=== PATIENT | male | born 1945 | race Caucasian/White ===

== ENCOUNTER 2023-11-09 05:58 | Day surgery (SDC) | payer MEDICARE ==
[2023-11-06 09:12] VITALS: BMI 26.3
[2023-11-09] MEDS ORDERED: LIDOCAINE 1% (10MG/ML) FOR IV START INTRADERMA PRN (06:31)
[2023-11-09] MEDS ORDERED: droPERidol 5 MG/2 ML VIAL IVP ONE (06:31)
[2023-11-09] MEDS ORDERED: HYDROmorphone 0.5 MG/0.5 ML SYRINGE IVP PRN (07:00)
[2023-11-09 07:12] VITALS: TEMP 97.6
[2023-11-09] MEDS: TAMSULOSIN 0.4 MG CAP.ER.24H PO ONE (07:20)
[2023-11-09] MEDS: ACETAMINOPHEN TAB 500 MG TAB PO PRN (07:20)
[2023-11-09] MEDS: HEPARIN SODIUM,PORCINE 5,000 UNIT/ML 1 ML VIAL SQ PRN (07:21)
[2023-11-09] MEDS: DEXAMETHASONE SOD PHOSPHATE 4 MG/ML 1 ML VIAL IV ONE (07:21)
[2023-11-09] MEDS: ONDANSETRON 4 MG/2 ML VIAL IVP ONE (07:22)
[2023-11-09] MEDS ORDERED: PROPOFOL 10 MG/ML 20 ML VIAL IV ONE (07:25)
[2023-11-09] MEDS ORDERED: KETOROLAC 15 MG/ML 1 ML VIAL ONE (07:25)
[2023-11-09] MEDS ORDERED: ROCURONIUM 10 MG/ML (5 ML VIAL) IV ONE (07:25)
[2023-11-09] MEDS ORDERED: GLYCOPYRROLATE 0.2 MG/ML 2 ML VIAL ONE (07:25)
[2023-11-09] MEDS ORDERED: LIDOCAINE 1% INJ 10MG/ML (20 ML MDV) ONE (07:25)
[2023-11-09] MEDS ORDERED: KETAMINE HCL IN 0.9 % NACL 50 MG/5 ML SYRINGE ONE (07:25)
[2023-11-09] MEDS ORDERED: NEOSTIGMINE 1 MG/ML 10 ML VIAL ONE (07:25)
[2023-11-09] MEDS ORDERED: fentaNYL (PF) 50 MCG/ML 2 ML AMP ONE (07:25)
[2023-11-09] MEDS ORDERED: MIDAZOLAM 2 MG/2 ML VIAL ONE (07:25)
[2023-11-09] MEDS: LACTATED RINGERS 1,000 ML IV SCH (07:29)
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
[2023-11-09] MEDS: BUPIVACAINE (PF) 0.25% 30 ML VIAL SQ ONE (08:03)
--- NOTE | 2023-11-09 09:51 | P.OP ---
Date of Procedure: 11/09/23 Procedure(s) Performed: PREOPERATIVE DIAGNOSIS: Left inguinal hernia POSTOPERATIVE DIAGNOSIS: Moderate to large sized indirect left inguinal hernia incarcerated containing sigmoid colon, ischemic epiploic appendage PROCEDURE: Laparoscopic da Lionel assisted repair left inguinal hernia with mesh, excision mesenteric lesion SURGEON: Dr. Mcgraw ANESTHESIA: General OPERATIVE PROCEDURE DETAILS: Patient was placed in the operating table in the supine position. The patient was placed under general anesthesia. The abdomen was prepped and draped in usual sterile fashion. A small curvilinear supraumbilical incision was made. The fascia was retracted anteriorly with [place] forceps. The Veress needle was inserted. The saline drop test was normal. Insufflation took place to 15 mmHg. An 8 mm trocar was placed into the peritoneal cavity. 2 additional 8 mm trochars were placed in the right upper quadrant and left upper quadrant under visualization. The robotic arms were then brought in and docked into place. The fenestrated bipolar was used in the left arm and the laparoscopic connor was utilized in the right arm. A 30 8 mm scope was used in the up position. The peritoneal cavity was inspected. The patient had a large hernia on the left-hand side. The right-hand side was free of abnormalities. The sigmoid colon was able to be reduced from the hernia sac. This was a indirect hernia. I would estimate at least 10 inches of the sigmoid colon was present within the hernia. The patient had a portion of pericolonic epiploic appendage that was ischemic. When we first placed our trocars into the abdomen there was a small amount of serosanguineous fluid present. I was unsure where this fluid was emanating from but it may have been related to the ischemic fat. This was later excised. We also excised a portion of fat that was present adherent to the undersurface of the inferior epigastric vasculature. Both portions of fat were removed using an Endo Catch bag at the completion of the procedure and sent to pathology. The peritoneum was incised in a horizontal fashion cephalad to the internal inguinal ring. Following that careful dissection of the preperitoneal space took place. This took place using both electrocautery, sharp dissection but primarily blunt dissection. Visualization of the pubic tubercle and Dani's ligament took place medially. Full dissection took place laterally as well. The hernia sac was fully dissected. Once we had adequate space the [id number] Progrip mesh was advanced into the preperitoneal space and flattened out appropriately to cover all potential hernia sites. The mesh was sutured to Dani's ligament in the midline using a running absorbable 3 OV lock suture. The peritoneal defect was then closed using a absorbable 2-0 VLok suture. The large hernia sac was incorporated into the peritoneal closure to help prevent future recurrence. Again the portions of fat were removed and sent to pathology. The pneumoperitoneum was then evacuated. The skin of all 3 sites was closed using a 4-0 Monocryl stitch. Skin glue was then applied. TYPE OF MESH USED: ProGrip LOCATION OF MESH: Preperitoneal FIXATION: Absorbable 3 OV lock PREOPERATIVE DISCUSSION ON SMOKING CESSASTION: Yes PREOPERATIVE DISCUSSION ON MORBID OBESITY: Yes PREOPERATIVE DISCUSSION ON APPROPRIATE USE OF NARCOTIC USE: Yes PREOPERATIVE EDUCATION: Multi Modal, Smoking Cessation and Weight Loss with BMI over 35. DISPOSITION: Stable to recovery room
[2023-11-09 11:46] VITALS: BP 128/82; PULSE 64; RESP 18
[2023-11-09] MEDS ORDERED: ACETAMINOPHEN TAB 325 MG TAB PO SCH (13:00)
[2023-11-09] MEDS ORDERED: IBUPROFEN 600 MG TAB PO SCH (16:00)
== END 2023-11-09 11:33 | disposition home or self-care (01) ==
LOC: OR 05:58
PROVIDERS: ATTEND Surgery
DX: K40.30 Unilateral inguinal hernia, with obstruction, without gangrene, not specified as recurrent (principal); I96 Gangrene, not elsewhere classified; M19.90 Unspecified osteoarthritis, unspecified site; Z79.82 Long term (current) use of aspirin; Z79.899 Other long term (current) drug therapy
CPT/HCPCS: 49650; S2900; 88305